=== PATIENT | male | born 1930 | race African-American/Black ===

== ENCOUNTER 2017-06-01 14:41 | Inpatient (IN) | payer OTHER ==
[~2017-06-01] VITALS: Ht 180.3 cm; Wt 68.0 kg
--- NOTE | ~2017-06-01 | S ---
[facility] [place] [address] SURGICAL PATH RPT PROCEDURE Name: MELE CONNELL Ilana Room #: 409-P DIS IN M.R.#: [id number] Admission: 06/01/17 Date of : 32 Discharge: 06/05/17 Report #: [id number] Path Case #: [id number] PATHOLOGY REPORT COLLECTION DATE: 06/03/2017 RECEIVED DATE: 06/04/2017 SUBMITTING PHYS: Dr. Raj Lugo OTHER PHYS: Reynold Tamayo M.D. Dr. Lorne Barron SPECIMEN(S) RECEIVED: A.Bx of gastric mass * * * * * * * * * * * * FINAL DIAGNOSIS: A. Bx of gastric mass: - ADENOCARCINOMA, INTESTINAL TYPE. - An H. pylori immunostain is negative (Block A1; appropriately reactive control). - See comment. COMMENT: These findings are discussed with Radha Jorge on 06/05/2017 at 11:14 AM. A HER2 study will be performed and reported as an addendum. This case is co-reviewed by Dr. Ruthie Stock. PATHOLOGIST: Aramis Laureano M.D. REPORT ELECTRONICALLY SIGNED BY: Aramis Laureano M.D. DATE/TIME: 06/05/2017 11:18 * * * * * * * * * * * * GROSS PATHOLOGY: Received in formalin labeled "Mele Connell BX of gastric mass" and consists of multiple jacobo tissue fragments aggregating to 0.3 x 0.3-0.2 cm. There are entirely submitted as A1. (GUILLAUME; 06/04/2017) CLINICAL HISTORY: GI bleed INITIAL CPT CODE(S): A; 83295, 05779, 21021 Professional services performed by [facility] at [facility] [address] [place] [address] SURGICAL PATH RPT PROCEDURE Name: MELE CONNELL Ilana Room #: 409-P DIS IN M.R.#: [id number] Admission: 06/01/17 Date of : 31 Discharge: 06/05/17 Report #: [id number] Path Case #: [id number] [address] [facility] , [place] [address] Technical services performed by [facility] at [address] [place] [address], [facility] [address] [address]. PROCEDURE REPORT (Order Date: 06/06/2017 00:00) COMMENT: The slides were marked for testing, and sent at the request of Dr. Raj Lugo. HercepTest was performed by [facility] on block A1. Please see SCANNED IMAGES under LABORATORY for separate report of results. (IUV:pablo; d/t: 06/08/2017) PATHOLOGIST: Ruthie Stock M.D. REPORT ELECTRONICALLY SIGNED BY: Ruthie Stock M.D. DATE/TIME: 06/08/2017 14:24 [facility] [address] [address] PHONE: [phone] DIRECTOR: Didier Lawson M.D. * * * END OF REPORT * * *
--- NOTE | ~2017-06-01 | HC ---
[facility] [place] [address] CONSULTATION Name: JAYME VAUGHN Room #: 409-P [facility] IN ..#: [id number] Admission: 06/01/17 Attend Phys: Reynold Tamayo MD Discharge: 06/05/17 Date of : 31 Report #: [id number] THIS REPORT FOR: //name// CC: Reynold Barron HISTORY OF PRESENT ILLNESS: This patient is seen in consultation regarding a discovery of a malignant appearing gastric mass on endoscopy from Sunday. He is currently alert and came to the Emergency Room with complaints of marked fatigue with increasing shortness of breath. He was found to be anemic with a hemoglobin of 6.5 and received blood transfusion with improvement. He denies any indigestion or heartburn. He has lost approximately 50 pounds over the last year. He underwent a colonoscopy previously with Dr. Epstein and stated that that was negative. He has never had an EGD. PAST MEDICAL HISTORY: Positive for seeing Dr. Barron for hypercholesterolemia with medical management along with hypothyroidism. PAST SURGICAL HISTORY: Tonsillectomy, appendectomy and right inguinal hernia repair. ALLERGIES: None known. FAMILY HISTORY: Negative. SOCIAL HISTORY: He is a reformed smoker and is retired. MEDICATIONS: Include Synthroid and Zocor. REVIEW OF SYSTEMS: Again negative for any detected. Blood loss. He denies vomiting or melena. He has no new masses or pain. He denies any sweats, chills, fevers, although did have weight loss as noted. PHYSICAL EXAMINATION: GENERAL: Shows alert black male. He is ambulatory in his room. HEENT: Normocephalic. He is wearing eyeglasses. NECK: Supple. CHEST: Clear. LYMPHATICS: Did not reveal any palpable supraclavicular adenopathy. EXTREMITIES: No clubbing, cyanosis or edema. SKIN: Normal turgor. NEUROLOGIC: No focal localizing signs. PSYCHIATRIC: Not agitated or confused. HOSPITAL COURSE: His stool was positive for occult blood. He has had EGD with biopsy as described. [address] [place] [address] CONSULTATION Name: JAYME VAUGHN Ilana Room #: 409-P [facility] IN M.R.#: [id number] Admission: 06/01/17 Attend Phys: Reynold Tamayo MD Discharge: 06/05/17 Date of : 31 Report #: [id number] ASSESSMENT: Suspected gastric neoplasm. PLAN: His CAT scan failed to reveal evidence of widespread metastatic disease. If his biopsy confirms adenocarcinoma, we will need to obtain a PET scan for further evaluation and question of a possible resectability. Full and further recommendations are to follow. Thanks again for allowing us to be involved in his care. <ELECTRONICALLY SIGNED> By: Laura Plascencia MD 06/05/17 1449 1455 1723 Laura Plascencia MD /nt
--- NOTE | ~2017-06-01 | EKG ---
[address] [place] [address] ELECTROCARDIOGRAM REPORT Name: JAYME VAUGHN Room #: 409-P ADM IN M.R.#: [id number] Admission: 06/01/17 Attend Phys: Reynold Tamayo MD Discharge: Date of : 31 Report #: [id number] THIS REPORT FOR: //name// [facility] ED Test Date: 2017-06-01 Test Time: 15:17:34 Pat Name: JAYME VAUGHN Department: Room: 409 Gender: M Senior Government Program Analyst: MZ : 1930 Requested By: Ben Herrmann Order Number: [id number] MD: Arron Rowley Measurements Intervals Deer Rate: 62 P: 67 MT: 177 QRS: 28 QRSD: 87 T: 67 QT: 382 QTc: 388 Interpretive Statements Sinus rhythm Atrial premature complex Compared to ECG 05/16/2016 10:25:46 No significant change was found Electronically Signed On 06-02-2017 13:01:01 [employer] by Arron Rowley [email or web address] <ELECTRONICALLY SIGNED> By: Arron Rowley MD, [facility] 06/02/17 1301 1517 16 Arron Rowley MD, FACC /EPI
--- NOTE | ~2017-06-01 | P ---
[facility] [place] [address] PROCEDURE REPORT Name: JAYME VAUGHN Room #: 409-P [facility]..#: [id number] Admission: 06/01/17 Attend Phys: Reynold Tamayo MD Discharge: 06/05/17 Date of : 31 Report #: [id number] THIS REPORT FOR: //name// CC: Reynold Barron MD DATE OF SERVICE: 06/03/2017 PROCEDURE PERFORMED: Upper endoscopy with biopsies. HISTORY OF PRESENT ILLNESS: The patient is an 86-year-old male who presented with increasing shortness of breath and generalized fatigue. He was noted to be significantly anemic on admission with hemoglobin of 6.5. He has been transfused 2 units today, hemoglobin is 8.7. The patient apparently had a colonoscopy within the last few years in which benign polyps were removed. No previous history of upper endoscopy. Denies any abdominal pain or heartburn. He has had weight loss of approximately 50 pounds in the last year. Plan is for upper endoscopy. DESCRIPTION OF PROCEDURE: The risks and benefits of the procedure were explained to the patient, those risks including but not limited to bleeding, perforation and the risk of sedation. He understood these risks and gave informed consent. Sedation was given using propofol per Anesthesia. Next, using a standard Wikian upper endoscope, the scope was placed in the patient's mouth and advanced under direct vision through the esophagus, stomach and into the second portion of the duodenum. The esophagus was normal throughout. The GE junction was normal. The gastric fundus was normal; however, there was a large malignant appearing mass within the gastric body. This was circumferential. Multiple biopsies were obtained. The gastric fundus and the gastric antrum were normal. The mass was approximately 10 cm in diameter. The pylorus was normal and patent. The duodenal bulb, first and second portion were all normal. The scope was then withdrawn and the procedure terminated. The patient tolerated the procedure well. IMPRESSION: 1. Large malignant appearing mass within the gastric mid body. Biopsies obtained. 2. Otherwise, normal upper endoscopy. RECOMMENDATIONS: 1. Await biopsy results. 2. We will proceed with CT scan of the abdomen and pelvis tomorrow. [facility] [address] [place] [address] PROCEDURE REPORT Name: RODERICKJAYME Room #: 409-P [facility] IN .R.#: [id number] Admission: 06/01/17 Attend Phys: Reynold Tamayo MD Discharge: 06/05/17 Date of : 31 Report #: [id number] Thank you for allowing me to participate in his care. <ELECTRONICALLY SIGNED> By: Raj Lugo MD 06/11/17 0922 1019 1846 Raj Lugo MD /nt
--- NOTE | ~2017-06-01 | HC ---
[facility] [place] [address] CONSULTATION Name: JAYME VAUGHN Room #: 409-P [facility] IN ..#: [id number] Admission: 06/01/17 Attend Phys: Reynold Tamayo MD Discharge: 06/05/17 Date of : 31 Report #: [id number] THIS REPORT FOR: //name// CC: Reynold Barron DATE OF SERVICE: 06/02/2017 HISTORY OF PRESENT ILLNESS: The patient is an 86-year-old male who reports recent increasing shortness of breath and generalized fatigue. On admission, he was noted to have a hemoglobin of 6.5. He has had a previous history of anemia. In fact, he was transfused in 2014. He apparently had a colonoscopy within the last 2 years in which benign polyps were removed, but otherwise negative. He denies no previous history of upper endoscopy. He denies any abdominal pain or heartburn. He denies any dysphagia. He denies any NSAID use. He has had some darker stools, but he also was taking iron for several months, but he stopped taking this recently due to constipation. He denies any nausea or vomiting. He has had weight loss of approximately 50 pounds in the last year. He is currently being transfused 2 units of packed cells today. He denies any chest pain currently, no fevers or chills. PAST MEDICAL HISTORY: Hypercholesterolemia, history of anemia, hypothyroidism, previous right inguinal hernia repair, tonsillectomy, appendectomy. ALLERGIES: No known drug allergies. REVIEW OF SYSTEMS: As per HPI. FAMILY HISTORY: Negative for colon cancer. SOCIAL HISTORY: Quit smoking several years ago. He denies any alcohol use. MEDICATIONS AT HOME: Synthroid, Zocor. PHYSICAL EXAMINATION: VITAL SIGNS: Temperature is 96.3, pulse 58, blood pressure 129/47, respiratory rate is 18. GENERAL: He is alert and oriented x 3 in no acute distress. HEENT: Sclerae nonicteric. Oropharynx clear. NECK: Supple, without lymphadenopathy. HEART: Regular rate and rhythm. CHEST: Clear to auscultation bilaterally. ABDOMEN: Soft, nontender, nondistended, normoactive bowel sounds. EXTREMITIES: No cyanosis, clubbing or edema. [facility] [address] [place] [address] CONSULTATION Name: JAYME VAUGHN Room #: 409-P [facility] IN [facility].#: [id number] Admission: 06/01/17 Attend Phys: Reynold Tamayo MD Discharge: 06/05/17 Date of : 31 Report #: [id number] LABORATORY DATA: Sodium 139, potassium is 4.5, chloride 109, bicarbonate 27, BUN 13, creatinine 1.1. Troponin less than 0.04. WBC 5.5, hemoglobin 6.5, MCV 80.7, platelet count 216. Stool hemoccult positive x 1 yesterday. ASSESSMENT AND PLAN: Anemia, Hemoccult positive stool. Would recommend proceeding with an upper endoscopy tomorrow. In the meantime, the patient is being transfused 2 units of packed cells today. We will make the patient n.p.o. after midnight. He agrees with this plan. We will make further recommendations after endoscopy. Continue PPI therapy. Thank you for allowing me to participate in his care. <ELECTRONICALLY SIGNED> By: Raj Lugo MD 06/11/17 0922 1405 1748 Raj Lugo MD /nt
[~2017-06-01 14:41] MED LIST: CIPRO500 MG PO; COLACE100 MG PO; DIFLUCAN200 MG PO; FLEXERIL PO; IRON325 PO; LEVOTHYROXIN0.125 M1 PO; LORTAB 5 MG/5001 TA1 PO; SIMVASTATIN40 MG PO; XANAX 0.5 MG0.5 M1 PO
[2017-06-01 15:20] VITALS: BP 126/51
[2017-06-01 15:42] LABS: ABSOLUTE NEUTROPHILS 5.1 thou/uL (1.4-8.2); BASOPHILS 0.7 % (0.0-2.0); HEMATOCRIT 24.3 % (42.0-52.0); HEMOGLOBIN 7.5 gm/dL (14.0-18.0); LYMPHOCYTES 12.1 % (24.0-44.0); MCHC 30.7 g/dL (28.0-37.0); MCV 81.5 fL (80.0-100.0); MONOCYTES 11.3 % (1.0-8.0); PLATELET COUNT 246 thou/uL (150-400); POLYS 72.9 % (36.0-66.0); RBC 2.98 mil/uL (4.50-6.00); RDW 16.3 % (10.5-14.5)
[2017-06-01 15:52] LABS: ANION GAP 4 mmol/L (7-16); BUN 15 mg/dL (7-18); CHLORIDE 107 mmol/L (98-107); CO2 26 mmol/L (21-32); CREATININE 1.2 mg/dL (0.7-1.3); GLUCOSE 98 mg/dL (74-106); POTASSIUM 4.5 mmol/L (3.5-5.1); SODIUM 137 mmol/L (136-145)
[2017-06-01 16:00] LABS: TROPONIN-I < 0.04 ng/mL (<0.06)
[2017-06-01 17:28] VITALS: BP 136/52
[2017-06-01 19:28] VITALS: BP 140/57
[2017-06-02] VITALS (7 sets, daily range): BP systolic 125–146; BP diastolic 44–76
[2017-06-02 04:44] LABS: CALCIUM 8.4 mg/dL (8.5-10.1); CREATININE 1.1 mg/dL (0.7-1.3); POTASSIUM 4.5 mmol/L (3.5-5.1)
[2017-06-02 05:38] LABS: HEMOGLOBIN 6.5 gm/dL (14.0-18.0); RDW 16.2 % (10.5-14.5); WBC 5.5 thou/uL (4.0-11.0)
[2017-06-02 05:42] LABS: HEMATOCRIT 20.7 % (42.0-52.0); MCH 25.4 pg (26.0-34.0); MCHC 31.4 g/dL (28.0-37.0); MCV 80.7 fL (80.0-100.0); RBC 2.56 mil/uL (4.50-6.00)
[2017-06-02 23:50] LABS: HEMATOCRIT 26.8 % (42.0-52.0); HEMOGLOBIN 8.7 gm/dL (14.0-18.0)
[2017-06-02 23:56] LABS: CALCIUM 8.9 mg/dL (8.5-10.1); CREATININE 1.1 mg/dL (0.7-1.3); POTASSIUM 4.4 mmol/L (3.5-5.1)
[2017-06-03 04:00] VITALS: BP 120/63
[2017-06-03 08:01] VITALS: BP 131/46
[2017-06-03 17:02] VITALS: BP 125/48
[2017-06-03 19:40] VITALS: BP 100/53
[2017-06-03 22:51] LABS: HEMATOCRIT 28.3 % (42.0-52.0); MCH 26.1 pg (26.0-34.0); MCHC 31.8 % (28.0-37.0); MCV 82.1 fL (80.0-100.0); PLATELET COUNT 215 thou/uL (150-400); RBC 3.44 mil/uL (4.50-6.00); RDW 16.4 % (10.5-14.5); WBC 7.6 thou/uL (4.0-11.0)
[2017-06-03 22:55] LABS: CREATININE 1.1 mg/dL (0.7-1.3); POTASSIUM 4.2 mmol/L (3.5-5.1)
[2017-06-03 23:07] LABS: CALCIUM 8.8 mg/dL (8.5-10.1)
[2017-06-04 00:30] LABS: ABSOLUTE NEUTROPHILS 5.4 thou/uL (1.4-8.2); ANISOCYTOSIS 1+
[2017-06-04 04:00] VITALS: BP 126/62
[2017-06-04 05:35] LABS: HEMATOCRIT 27.5 % (42.0-52.0); HEMOGLOBIN 8.8 gm/dL (14.0-18.0); MCH 26.2 pg (26.0-34.0); MCHC 31.9 g/dL (28.0-37.0); PLATELET COUNT 224 thou/uL (150-400); RBC 3.35 mil/uL (4.50-6.00); RDW 17.1 % (10.5-14.5); WBC 6.3 thou/uL (4.0-11.0)
[2017-06-04 07:14] LABS: ABSOLUTE NEUTROPHILS 4.5 thou/uL (1.4-8.2); ANISOCYTOSIS 1+
[2017-06-04 09:16] VITALS: BP 136/56
[2017-06-04 18:05] VITALS: BP 143/58
[2017-06-04 20:54] LABS: % SATURATION 5 % (20-39); IRON 12 ug/dL (65-175); TIBC 226 ug/dL (250-450)
[2017-06-04 21:13] VITALS: BP 142/53
[2017-06-04 21:17] LABS: FERRITIN 15 ng/mL (26-388)
[2017-06-05 04:00] VITALS: BP 121/60
[2017-06-05 05:13] LABS: ALBUMIN 2.3 g/dL (3.4-5.0); CALCIUM 9.1 mg/dL (8.5-10.1); MAGNESIUM 2.1 mg/dL (1.8-2.4); POTASSIUM 4.6 mmol/L (3.5-5.1); TOTAL BILIRUBIN 0.4 mg/dL (<0.1-1.0); TOTAL PROTEIN 5.7 g/dL (6.4-8.2)
[2017-06-05 07:25] VITALS: BP 105/53
[2017-06-05] MEDS ORDERED: PROTONIX40 M1 PO (08:45)
[2017-06-05 11:56] VITALS: BP 105/53
== END 2017-06-05 12:49 | disposition home or self-care (01) | DRG 377 ==
LOC: ER 14:41 → EROBS 16:30 → 4N 16:30
PROVIDERS: Hospitalist; Internal Medicine Gastroenterology; Nurse Practitioner Acute Care; Physician Assistant; Registered Nurse
PROC: 30233N1 Transfusion of Nonautologous Red Blood Cells into Peripheral Vein, Percutaneous Approach (ICD-10-PCS; 2017-06-02)
PROC: 0DB68ZX Excision of Stomach, Via Natural or Artificial Opening Endoscopic, Diagnostic (ICD-10-PCS; principal; 2017-06-03)
DX: K92.2 Gastrointestinal hemorrhage, unspecified (principal); E43 Unspecified severe protein-calorie malnutrition; D64.9 Anemia, unspecified; E03.9 Hypothyroidism, unspecified; E78.00 Pure hypercholesterolemia, unspecified; F32.9 Major depressive disorder, single episode, unspecified; K31.9 Disease of stomach and duodenum, unspecified; K76.89 Other specified diseases of liver; Z90.49 Acquired absence of other specified parts of digestive tract; Z79.899 Other long term (current) drug therapy; Z87.891 Personal history of nicotine dependence; Z68.20 Body mass index [BMI] 20.0-20.9, adult
CPT/HCPCS: 10790; 62110; 62900; 70005